=== PATIENT | female | born 1995 | race Caucasian/White ===

== ENCOUNTER 2018-09-11 07:22 | Emergency (ER) | payer OTHER, SELFPAY ==
[2018-09-11 07:28] VITALS: BP 130/91; PULSE 88; RESP 18; TEMP 37.2; O2SAT 97
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
[2018-09-11 08:17] LABS: Bilirubin Negative (Negative); Blood Negative (Negative); Clarity Clear; Glucose Negative (Negative); Ketones Negative (Negative); Leukocyte Esterase Negative (Negative); Nitrite Negative (Negative); Specific Gravity 1.015 (1.005-1.025); Urobilinogen 0.2 EU/dL (Up TO 0.2)
[2018-09-11] MEDS: LORazepam 1 MG TAB PO (08:22)
[2018-09-11 08:27] LABS: Abs Immature Grans 0.06 k/cumm (0.0-0.09); Absolute Basophil Count 0.03 k/cumm (0.0-0.2); Absolute Eosinophil Count 0.07 k/cumm (0.0-0.7); Absolute Lymphocyte Count 1.83 k/cumm (1.2-3.4); Absolute Monocyte Count 0.59 k/cumm (0.11-0.7); Absolute Neutrophil Count 5.47 k/cumm (1.2-6.7); Basophils % 0.4; Eosinophils % 0.9; HCT 40.6 % (36.0-46.0); HGB 14.1 g/dL (12.0-15.5); Immature Grans % 0.7; Lymphocytes % 22.7; Mean Corp. HGB Concentration 34.7 g/dL (32.0-36.0); Mean Corpuscular Hemoglobin 31.1 pg (27.0-33.0); Mean Corpuscular Volume 89.6 fL (80-95); Monocytes % 7.3; Platelet Count 291 x1000/uL (130-400); RBC 4.53 m/cumm (4.00-5.20); RBC Distribution Width 11.8 % (11.7-14.6); White Blood Cell Count 8.05 k/cumm (4.4-10.8)
[2018-09-11 08:38] LABS: *AMPHETAMINES SCREEN URINE Negative (Negative); *BARBITURATES SCREEN URINE Negative (Negative); *BENZODIAZEPINES SCREEN URINE Negative (Negative); Cannabinoids THC POSITIVE (Negative); Cocaine Screen,Urine Negative (Negative); METHADONE URINE SCREEN Negative (Negative); OPIATES URINE SCREEN Negative (Negative)
[2018-09-11 08:39] LABS: Tricyclic Antidepressants Negative (Negative)
[2018-09-11 08:48] LABS: ALT 26 U/L (12-78); AST 17 U/L (15-37); Albumin 3.9 g/dL (3.4-5.0); Alkaline Phosphatase 64 U/L (46-116); Anion Gap 9.3 mmol/L (3-11); BUN 7 mg/dL (7-18); Bilirubin, Total 0.2 mg/dL (0.2-1.0); CO2 27.7 mmol/L (21.0-32.0); CREATININE 0.67 mg/dL (0.55-1.02); Calcium 9.3 mg/dL (8.5-10.1); Chloride 104 mmol/L (98-107); Glucose 91 mg/dL (70-100); Potassium 4.5 mmol/L (3.5-5.1); Sodium 141 mmol/L (136-145); TSH (W/Ref FT4) 0.57 uIU/mL (0.358-3.74); Total Protein 7.7 g/dL (6.4-8.2)
[2018-09-11 08:50] LABS: Acetaminophen < 2 ug/mL (10-30)
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
--- NOTE | 2018-09-11 10:00 | NUR.NOTE ---
MD Campos is at the bedside.
[2018-09-11 10:06] VITALS: BP 111/75; PULSE 63; RESP 16; O2SAT 111
== END 2018-09-11 10:04 | disposition home or self-care (01) ==
PROVIDERS: Emergency Provider Student in an Organized Health Care Education/Training Program; PCP Pediatrics
DX: F41.8 Other specified anxiety disorders (principal); R45.851 Suicidal ideations; J02.9 Acute pharyngitis, unspecified; F31.9 Bipolar disorder, unspecified; Z63.79 Other stressful life events affecting family and household
CPT/HCPCS: 36415; 80053; 80307; 81025; 87880; 93005; 99283; 80329; 81003; 84443; 85025; 87081; 93010

== ENCOUNTER 2018-09-13 20:24 | Emergency (ER) | payer OTHER, SELFPAY ==
[2018-09-13 20:33] VITALS: BP 120/76; PULSE 77; RESP 16; TEMP 36.6; O2SAT 100
--- NOTE | 2018-09-13 21:05 | ED.GENADUL_ITS ---
Discharge Plan Disposition Patient Disposition: HOME Condition: Good Discharge Details Chief Complaint: Sorethroat Clinical Impression: Acute infective pharyngitis Primary Care Provider: Nina Phillips V ED Provider: Cullen Mcgowan Home Meds and New Rx's Prescriptions: New azithromycin 250 mg tablet 250 mg PO DAILY 4 Days Qty: 4 RF: 0 Discharge Instructions Instructions: Pharyngitis (ED) Additional Instructions: Please do salt water gargles and use Cepacol lozenges for throat pain. Alternate acetaminophen and ibuprofen for the neck pain. Drink plenty fluids to stay hydrated. Rest for the next few days. Follow-up with primary care next week if not better. Return to ED for difficulty breathing, inability to swallow, continued/persistent fevers, other concerns. Stand Alone Forms: Work Release Referrals: Primary Care Provider [Outside] Medical Decision Making Patient here with worsening throat pain as well as cervical adenopathy that is tender. She is not febrile here. She is not tachycardic. Saturations are good. Throat culture from previous visit is growing Streptococcus G. Typically would not treat but given her symptoms are worse, we will go ahead and start treatment. She has allergies to amoxicillin which cause hives. Will treat with azithromycin. Will give first dose here. We will also give shot of Toradol for pain. Recommend salt water gargles and Cepacol lozenges to help with pain. Tylenol and Motrin for the cervical node tenderness and pain. Follow-up with primary care next week if not better. Return to ED if continues to get worse. Medical Records Medical records reviewed: Yes I reviewed the patient's medical records. HPI General Mode of arrival: ambulatory . Date/Time Provider Initiated Documentation: 09/13/18 21:01 . Limitations to Documentation: no limitations . Information obtained by: patient, RN notes reviewed and old records reviewed . HPI Narrative: Patient presents to ED with increasing throat and neck pain. She reports having febrile type illness for the last week or so. Associated with tactile fever, earache, sore throat, congestion and cough. The congestion and cough is more or less resolved. However, her sore throat continues to get worse. She is taking ibuprofen, cough drops, throat lozenges today with increasing pain. She has no shortness of breath. She has pain when she swallows. She has no abdominal pain, nausea, vomiting. She has a slight headache. She was here in the ED earlier this week. At that time a throat culture was done. She was also seen for mental health which seems to be better at this point. Related Data Home Medications Medication Instructions Recorded Confirmed azithromycin 250 mg PO DAILY 4 Days #4 tab 09/13/18 Previous Rx's Medication Instructions Recorded azithromycin 250 mg PO DAILY 4 Days #4 tab 09/13/18 Allergies Allergy/AdvReac Type Severity Reaction Status Date / Time amoxicillin Allergy Mild hives Unverified 09/11/18 07:37 General Stated Complaint: Sorethroat RAHUL: 3 Review of Systems Constitutional Denies fatigue, Reports fever(s), Reports headache(s), Denies lethargy, Reports malaise and Denies weakness Eyes Denies eye discharge and Denies eye pain ENT Reports otalgia, Denies facial pain, Reports headache(s), Denies nasal congestion, Reports neck pain, Reports odynophagia, Denies sinus pain, Denies sinus pressure and Reports sore throat Cardiovascular Denies chest pain, Denies syncope, Denies rapid heart rate, Denies palpitations and Denies dyspnea Respiratory Denies cough and Denies dyspnea Gastrointestinal Denies abdominal pain, Denies diarrhea, Denies nausea, Reports odynophagia and Denies vomiting Musculoskeletal Denies back pain, Denies myalgias, Denies arthralgias, Reports neck pain, Denies numbness and Denies tingling Integumentary/Breasts Denies rash Neurologic Denies abnormal speech, Denies confusion, Denies syncope, Reports headache(s), Denies focal weakness, Denies numbness, Denies tingling and Denies weakness Psychiatric Denies confusion Endocrine Denies fatigue and Denies palpitations PFSH Anxiety Attention deficit hyperactivity disorder, combined type Dyspareunia in female Family History Father Anxiety Narcissism Mother Anxiety Dilation and curettage Family History Father Anxiety Narcissism Mother Anxiety Medical History Anxiety Attention deficit hyperactivity disorder, combined type Dyspareunia in female Social History Smoking/Tobacco Use Status: Current every day alcohol intake: current alcohol intake frequency: 3 or more drinks per day substance use type: marijuana Surgical History Dilation and curettage Social History Smoking/Tobacco Use Status: Current every day alcohol intake: current alcohol intake frequency: 3 or more drinks per day substance use type: marijuana Exam Const General: cooperative, uncomfortable and no acute distress Orientation: alert and oriented x3 HENMT Head: normocephalic and atraumatic Ears: external ears normal and TM's normal bilaterally General nose exam: external nose normal Face and sinus: normal facial exam and sinuses nontender Mouth: moist mucous membranes, no muffled voice and oral mucosa abnormal ulceration of the hard palate (not true ulceration but erythematous lesion left side) Throat: tonsils normal, uvula midline, no peritonsillar masses, posterior oropharynx abnormal cobblestoning and erythema; no exudates and no uvular edema Eyes Conjunctivae: conjunctivae normal Neck Neck: normal visual inspection, no meningeal signs, trachea midline, supple and lymphadenopathy (tender anterior cervical nodes) Resp Effort & Inspection: normal respiratory effort Auscultation: clear to auscultation bilaterally Cardio Rate: regular rate Rhythm: regular rhythm Heart Sounds: S1 normal and S2 normal Skin General skin exam: no rashes or lesions noted Neuro General: alert, oriented x3, moves all extremities and normal light touch, pain and propioception Course Vital Signs Temperature 97.9 F 09/13/18 20:33 Pulse 77 09/13/18 20:33 Respiratory Rate 16 09/13/18 20:33 Blood Pressure 120/76 09/13/18 20:33 Pulse Oximetry 100 09/13/18 20:33 Temperature 97.9 F 09/13/18 20:33 Temperature Source Skin 09/13/18 20:33 Pulse 77 09/13/18 20:33 Respiratory Rate 16 09/13/18 20:33 Blood Pressure 120/76 09/13/18 20:33 Blood Pressure Position Sitting 09/13/18 20:33 Pulse Oximetry 100 09/13/18 20:33 Oxygen Delivery Method Room Air 09/13/18 20:33 Oxygen Flow Rate 0 09/13/18 20:33 Pain Level 10 09/13/18 20:33
[2018-09-13] MEDS: Azithromycin 250 MG TAB 500 MG PO (22:07)
[2018-09-13] MEDS: Ketorolac 30 MG/ML VIAL IM (22:07)
== END 2018-09-13 22:31 | disposition home or self-care (01) ==
PROVIDERS: Emergency Provider Emergency Medicine; PCP Pediatrics
DX: J02.0 Streptococcal pharyngitis (principal); F17.210 Nicotine dependence, cigarettes, uncomplicated
CPT/HCPCS: 96372; 99284; J1885

== ENCOUNTER 2018-12-01 14:48 | Emergency (ER) | payer OTHER, SELFPAY ==
--- NOTE | 2018-12-01 14:54 | NUR.NOTE ---
laceration left hand first digit
[2018-12-01 14:56] VITALS: PULSE 77; RESP 17; TEMP 36.4; O2SAT 98
--- NOTE | 2018-12-01 14:57 | ED.GENADUL_ITS ---
Discharge Plan Disposition Patient Disposition: HOME Condition: Stable Discharge Details Chief Complaint: Laceration Clinical Impression: Laceration of left thumb Primary Care Provider: Nina Phillips V ED Provider: Ronny Espinoza Discharge Instructions Instructions: Skin Adhesive Care (ED) Medical Decision Making 23 yo female comes in with left thumb laceration/abrasion. She was at work using aknife and cut the distal left thumb. Has very superfical lac of distal left thumb that goes through the nail bed, intact sensation and full rom so doubt tendon injury. I applied skin adhesive to the wound, not deep enough for sutu res, will d/c home Differential Diagnosis abrasion, laceration HPI General Mode of arrival: ambulatory . Date/Time Provider Initiated Documentation: 12/01/18 14:49 . Limitations to Documentation: no limitations . Information obtained by: patient . History of Present Illness 23 year old F presents to the emergency department with the chief complaint of left thumb laceration, described as moderate, with intensity rated at 5. Quality is described as aching, and is localized to the left and upper extremity. Patient reports no radiation. Patient started experiencing this hour(s) (1) and it has been constant. No relieving factors improve symptom(s), No exacerbating factors reported . Patient notes no other symptoms.. Patient did receive the following treatments prior to arrival, none Related Data Allergies Allergy/AdvReac Type Severity Reaction Status Date / Time amoxicillin Allergy Mild hives Unverified 09/13/18 22:33 General RAHUL: 3 Review of Systems Review of Systems All systems reviewed & are unremarkable except as noted in HPI and below Constitutional Denies chills, Denies fever(s) and Denies weakness Cardiovascular Denies chest pain and Denies dyspnea Respiratory Denies cough and Denies dyspnea Gastrointestinal Denies abdominal pain, Denies nausea and Denies vomiting Musculoskeletal Denies joint swelling Integumentary/Breasts Denies rash Neurologic Denies weakness Endocrine Denies cold intolerance and Denies heat intolerance [facility] Medical History Anxiety Attention deficit hyperactivity disorder, combined type Dyspareunia in female Surgical History Dilation and curettage Family History Father Anxiety Narcissism Mother Anxiety Social History Smoking and Tabacco status: Current every day alcohol intake: current alcohol intake frequency: 3 or more drinks per day substance use type: marijuana Exam Const General: no acute distress Orientation: alert HENMT Head: normal to inspection Ears: external ears normal General nose exam: external nose normal Mouth: moist mucous membranes Eyes General: appearance normal, both eyes and all related structures Neck Neck: normal visual inspection Resp Effort & Inspection: normal respiratory effort and able to speak in complete sentences Cardio Rate: regular rate Skin General skin exam: no rashes or lesions noted Neuro General: alert and oriented x3 Extrem General: full ROM and normal capillary refill Psych Mental Status: mental status grossly normal Procedures Laceration Laceration 1: Site: hand Side (If applicable): left Size (cm): 1 Description: linear Depth: simple, single layer Skin layer closed with: other (skin adhesive)
[2018-12-01 15:18] VITALS: PULSE 77; RESP 17; TEMP 36.4; O2SAT 98
== END 2018-12-01 15:16 | disposition home or self-care (01) ==
LOC: ER 15:20
PROVIDERS: Emergency Provider Emergency Medicine; PCP Pediatrics
DX: S61.122A Laceration with foreign body of left thumb with damage to nail, initial encounter (principal); W26.0XXA Contact with knife, initial encounter
CPT/HCPCS: 12001; 90471

== ENCOUNTER 2020-05-09 10:50 | Emergency (ER) | payer OTHER, SELFPAY ==
[2020-05-09 10:52] VITALS: BP 134/89; PULSE 84; RESP 14; TEMP 36.9; O2SAT 100
--- NOTE | 2020-05-09 11:04 | W.ED.GENAD ---
Discharge Plan Disposition Patient Disposition: HOME Condition: Stable Discharge Details Chief Complaint: GenMedical Clinical Impression: Acute streptococcal pharyngitis Primary Care Provider: None,None ED Provider: Lashae Alonso Home Meds and New Rx's Prescriptions: New azithromycin [Zithromax] 500 mg tablet 500 mg PO DAILY 5 Days Qty: 5 RF: 0 Discharge Instructions Instructions: Pharyngitis (ED) Additional Instructions: Drink plenty of fluids and get plenty of rest. Alternate tylenol and motrin as needed and directed for pain. Take the antibiotics until finished. Follow-up with your primary care doctor in 1 week. Return to the emergency department with any worsening or new concerning symptoms. Discharge Data Discharge Physician: Lashae Alonso Medical Decision Making 25-year-old female presents with sore throat, swollen glands, dysphagia and white spots on her tonsils for the past few days. Patient has mild to moderate tonsillar edema, moderate erythema, and significant white exudates bilaterally. Uvula midline. Bilateral tender cervical lymphadenopathy. No peritonsillar abscess. No drooling, trismus, submandibular swelling. No hepatosplenomegaly. Rapid strep done and positive. Galax screen negative. Patient has an allergy to amoxicillin. She was given a prescription for Zithromax. Advised to follow up with the primary care doctor for re-evaluation. Usual and customary return precautions given prior to discharge. Medical Records Medical records reviewed: Yes I reviewed the patient's medical records. HPI General Mode of arrival: ambulatory. Date/Time Provider Initiated Documentation: 05/09/20 10:50. Limitations to Documentation: no limitations. Information obtained by: patient. HPI Narrative: Patient is a 25-year-old female who presents with pain with swallowing, swollen glands in her throat, and white spots noted on her tonsils for the past 2 days. She denies any significant sore throat but states she has been developing more pain with swallowing. She has been able to eat and drink. She denies any fever, abdominal pain or vomiting. Related Data Home Medications Medication Instructions Recorded Confirmed azithromycin [Zithromax] 500 mg PO DAILY 5 Days #5 tab 05/09/20 Previous Rx's Medication Instructions Recorded azithromycin [Zithromax] 500 mg PO DAILY 5 Days #5 tab 05/09/20 Allergies Allergy/AdvReac Type Severity Reaction Status Date / Time amoxicillin Allergy Mild hives Unverified 05/09/20 10:59 General Stated Complaint: GenMedical RAHUL: 4 Review of Systems All systems reviewed & are unremarkable except as noted in HPI and below Constitutional Constitutional: Reports as per HPI, Denies chills and Denies fever(s) Eyes Eyes: Denies blurry vision ENT Ears, Nose, Mouth, and Throat: Denies dizziness, Reports odynophagia, Reports sore throat and Denies throat swelling Cardiovascular Cardiovascular: Denies chest pain and Denies dyspnea Respiratory Respiratory: Denies cough and Denies dyspnea Gastrointestinal Gastrointestinal: Denies abdominal pain, Denies diarrhea, Reports odynophagia and Denies vomiting Genitourinary Genitourinary: Denies hematuria and Denies dysuria Musculoskeletal Musculoskeletal: Denies back pain and Denies numbness Integumentary/Breasts Skin/Breast: Denies lesions and Denies rash Neurologic Neurologic: Denies dizziness, Denies localized weakness and Denies numbness Allergic/Immunologic Allergic/Immunologic: Denies throat swelling [facility] Medical History (Updated 05/09/20 @ 11:55 by Lashae Alonso DO) Anxiety Attention deficit hyperactivity disorder, combined type Dyspareunia in female R > L sided pelvic pain. Surgical History Dilation and curettage With early AB Family History Father Anxiety untreated Narcissism per pt/mom's description Mother Anxiety Social History Smoking/Tobacco Use Status: Current every day Tobacco Type: cigarettes Alcohol Intake: current Alcohol Intake frequency: a few times a month Drug use: Occasionally Substance use type: marijuana Do you feel safe at home: Yes Do you feel safe in your relationship?: Yes Additional Social history: lives with grandparents Exam Const General: cooperative and healthy appearing Orientation: alert and awake HENMT Head: normal to inspection Ears: hearing grossly normal bilaterally, external ears normal and TM's normal bilaterally General nose exam: external nose normal Face and sinus: normal facial exam Mouth: oral mucosae normal Teeth and gingiva: dentition normal Throat: uvula midline, no peritonsillar masses and posterior oropharynx abnormal edema (Mild to moderate, tonsils not kissing), erythema and exudates Eyes General: appearance normal, both eyes and all related structures Eyelids: eyelids normal Pupils: PERRL EOM: EOM intact bilaterally Neck Neck: normal visual inspection Lymphatic: no lymphadenopathy noted Chest Chest: normal inspection of the chest Resp Effort & Inspection: normal respiratory effort and able to speak in complete sentences Auscultation: clear to auscultation bilaterally Cardio Rate: regular rate Rhythm: regular rhythm GI Inspection: normal to inspection Palpation: soft, not firm, no guarding, no hepatosplenomegaly, no masses and nontender Auscultation: normal bowel sounds Skin General skin exam: no rashes or lesions noted Neuro General: patient alert and patient awake Cognition: normal cognition Speech: speech normal Gait: normal gait Motor: muscle tone normal throughout Sensory Exam: no sensory deficits noted Extrem General: normal to inspection, full ROM and capillary refill normal Psych Appearance: grossly normal Mental Status: mental status grossly normal Speech and Movement: speech and movement normal Affect: normal affect Thought Process: normal Course Vital Signs Vital signs: Vital Signs Temperature 98.4 F 05/09/20 10:52 Pulse 84 05/09/20 10:52 Respiratory Rate 14 05/09/20 10:52 Blood Pressure 134/89 05/09/20 10:52 Pulse Oximetry 100 05/09/20 10:52 Temperature 98.4 F 05/09/20 10:52 Temperature Source Skin 05/09/20 10:52 Pulse 84 05/09/20 10:52 Respiratory Rate 14 05/09/20 10:52 Respiratory Effort 05/09/20 11:02 Blood Pressure 134/89 05/09/20 10:52 Blood Pressure Position Sitting 05/09/20 10:52 Pulse Oximetry 100 05/09/20 10:52 Oxygen Delivery Method Room Air 05/09/20 10:52 Oxygen Flow Rate 0 05/09/20 10:52 Pain Level 5 05/09/20 10:52 Comment 05/09/20 10:52
[2020-05-09 11:51] LABS: Mono Screening Negative (Negative)
== END 2020-05-09 12:03 | disposition home or self-care (01) ==
PROVIDERS: Emergency Provider Physician Assistant
DX: J02.0 Streptococcal pharyngitis (principal); F17.210 Nicotine dependence, cigarettes, uncomplicated
CPT/HCPCS: 36415; 87880; 99283; 86308

== ENCOUNTER 2020-06-26 07:43 | Emergency (ER) | payer OTHER, SELFPAY ==
[2020-06-26 07:50] VITALS: BP 114/81; PULSE 97; RESP 18; TEMP 36.7; O2SAT 99
--- NOTE | 2020-06-26 08:10 | W.ED.GENAD ---
Discharge Plan Disposition Patient Disposition: HOME Condition: Stable Discharge Details Clinical Impression: Pharyngitis Primary Care Provider: None,None ED Provider: Refugio Lopez Home Meds and New Rx's Prescriptions: New azithromycin 250 mg tablet See Rx Instructions .ROUTE .COMPLEX Qty: 6 RF: 0 Discharge Instructions Instructions: Pharyngitis (ED) Additional Instructions: Small, frequent sips of fluids and/or popsicles to maintain hydration. Tylenol and ibuprofen as needed for pain. Take azithromycin as prescribed 2 tablets today, then 1 tablet daily until finished. Return to the ER for any acute concerns. Medical Decision Making 25-year-old female with sore throat for 2 days. She is well-appearing, pleasant, no other significant symptoms. Her exam reveals erythematous tonsillar pillars with overlying white exudate, her rapid strep test is positive. She is allergic to penicillins. I will place her on a course of azithromycin. She has otherwise been well and is appropriate for outpatient management. She declined a coronavirus test, which was offered, but I do not feel that it is likely she is positive. HPI General Mode of arrival: ambulatory. Date/Time Provider Initiated Documentation: 06/26/20 07:44. Limitations to Documentation: no limitations. Information obtained by: patient. History of Present Illness 25 year old F presents to the emergency department with the chief complaint of 2 days sore throat, described as moderate and similar to prior episodes, Quality is described as dull and constant, and is localized to the mouth. Patient reports no radiation. Patient started experiencing this day(s) and it has been constant. No relieving factors improve symptom(s), No exacerbating factors reported . Patient notes malaise; denies cough, fever/chills, nausea/vomiting and shortness of breath. Patient did receive the following treatments prior to arrival, none Related Data Home Medications Medication Instructions Recorded Confirmed azithromycin See Rx Instructions .ROUTE 06/26/20 .COMPLEX #6 tab Previous Rx's Medication Instructions Recorded azithromycin See Rx Instructions .ROUTE 06/26/20 .COMPLEX #6 tab Allergies Allergy/AdvReac Type Severity Reaction Status Date / Time amoxicillin Allergy Mild hives Unverified 06/26/20 07:53 General Stated Complaint: Sorethroat RAHUL: 4 Review of Systems Narrative: 4 systems reviewed and otherwise negative [facility] Medical History Anxiety Attention deficit hyperactivity disorder, combined type Dyspareunia in female R > L sided pelvic pain. Surgical History Dilation and curettage With early AB Family History Father Anxiety untreated Narcissism per pt/mom's description Mother Anxiety Social History Smoking/Tobacco Use Status: Current every day Tobacco Type: cigarettes Alcohol Intake: current Alcohol Intake frequency: a few times a month Drug use: Occasionally Substance use type: marijuana Do you feel safe at home: Yes Do you feel safe in your relationship?: Yes Additional Social history: lives with grandparents Exam Narrative Exam Narrative: GEN: awake, alert, oriented 3. Pleasant, well groomed, interactive. HEAD: Normocephalic, atraumatic ENT: Mucous membranes moist, oropharynx with erythematous tonsillar pillars with overlying white exudate, uvula midline, tympanic membranes unremarkable, External ear exam unremarkable EYES: PERRL, EOMI NECK: Full ROM, no MARQUEZ, no menigismus CHEST/RESP: Nontender, clear to auscultation bilateral, no wheeze/rhonchi/rales CARDIOVASCULAR: RRR, no murmur, rub portillo. 2+ Rad pulse bilateral Neuro: Grossly normal neurologic exam, conversant, interactive. Psych: Speech fluent, thoughts congruent, affect normal Course Vital Signs Vital signs: Vital Signs Temperature 36.7 C 06/26/20 07:50 Pulse 97 H 06/26/20 07:50 Respiratory Rate 18 06/26/20 07:50 Blood Pressure 114/81 06/26/20 07:50 Pulse Oximetry 99 06/26/20 07:50 Temperature 36.7 C 06/26/20 07:50 Pulse 97 H 06/26/20 07:50 Respiratory Rate 18 06/26/20 07:50 Respiratory Effort Non-Labored 06/26/20 07:53 Blood Pressure 114/81 06/26/20 07:50 Blood Pressure Position Sitting 06/26/20 07:50 Pulse Oximetry 99 06/26/20 07:50 Oxygen Delivery Method Room Air 06/26/20 07:50 Oxygen Flow Rate 0 06/26/20 07:50 Lab/Test Results Lab/Test Results: POC Strep Test-MARLENY(Rapid) Start: 06/26/20 08:06 Freq: Status: Active Protocol: Document 06/26/20 08:07 [employer] (Rec: 06/26/20 08:07 [employer] [id number]) Strep test-MARLENY(Rapid)-POC POC-Strep test-MARLENY (Rapid) Positive POC-Strep test-MARLENY (Rapid) Positive
== END 2020-06-26 08:20 | disposition home or self-care (01) ==
PROVIDERS: Emergency Provider Emergency Medicine
DX: J02.0 Streptococcal pharyngitis (principal); F17.210 Nicotine dependence, cigarettes, uncomplicated
CPT/HCPCS: 87880; 99283

== ENCOUNTER 2020-06-28 07:38 | Emergency (ER) | payer OTHER, SELFPAY ==
[2020-06-28 07:43] VITALS: BP 153/76; PULSE 120; RESP 16; TEMP 36.8; O2SAT 99
--- NOTE | 2020-06-28 07:58 | W.ED.GENAD ---
Discharge Plan Disposition Patient Disposition: HOME Condition: Good Discharge Details Clinical Impression: Pharyngitis, Lymphadenopathy Primary Care Provider: None,None ED Provider: Charline Sanchez Home Meds and New Rx's Prescriptions: Continued azithromycin 250 mg tablet See Rx Instructions .ROUTE .COMPLEX Qty: 6 RF: 0 Discharge Instructions Instructions: Pharyngitis (ED) Additional Instructions: Please continue with your azithromycin. Please encourage water intake. Please change your toothbrush today. It does appear that your throat is improving. You may use Tylenol and ibuprofen for your enlarged lymph nodes to help with discomfort. With your developing symptoms, we have tested you for COVID-19. Please quarantine until these results are back. We will call you with results. If you are unable to stay hydrated, develop fever, difficulty opening your mouth or other new/worsening symptoms please seek care urgently once again. Stand Alone Forms: PENDING COVID-19 TESTING, Work Release Medical Decision Making Patient is a pleasant 25-year-old female presenting today with concern for lymphadenopathy. Patient was seen here 2 days ago at which time she was started on azithromycin for streptococcal pharyngitis. She states that she has been taking the medications as prescribed but does note improvement in her sore throat as well as the white patches that had initially been noted on her tonsils. She is concerned today that she has lymphadenopathy is quite painful, particularly to palpation. She reports that she has not had any fevers or chills. No shortness of breath or cough. Is also began developing runny nose and some sinus discomfort. On exam, patient appears nontoxic. She was initially documented to have a heart rate of 121 but this was when patient appeared very anxious per nursing report. I rechecked denies in the room and patient's heart rate was at 90. She is no sinus pain with percussion. She has palpable anterior cervical lymphadenopathy that is equal bilaterally. No masses are noted. She is good range of motion of her neck, no nuchal rigidity. She is denying any headache. No evidence of physical exam to suggest peritonsillar abscess or abscess elsewhere in her neck. She has no posterior adenopathy, does not have symptoms otherwise this suggest mononucleosis. She does appear well-hydrated. We will add Tylenol to the anti-inflammatory she is Orion taking this morning. Work note will be given. As her symptoms have progressed, I did recommend COVID-19 testing. She had initially declined this when she was seen 2 days ago. I does note that by Dr. Lopez, I would find her low risk but with the progression of symptoms I do feel the testing is appropriate at this time. Work note was given that did outline that she will be quarantining per patient's request. She was given return precautions. Will also help with new primary care. Patient will change her toothbrush today. All of her questions or concerns were addressed and she is in agreement this plan. HPI General Mode of arrival: ambulatory. Date/Time Provider Initiated Documentation: 06/28/20 07:58. Limitations to Documentation: no limitations. Information obtained by: patient and family (mother). History of Present Illness 25 year old F presents to the emergency department with the chief complaint of sore throat, enlarged lymphnodes, described as severe, with intensity rated at 8. Quality is described as burning, and is localized to the mouth and neck. Patient reports no radiation. and it has been constant. Medication improves symptom(s), (took NSAID prior to arrival, starting to improve) No exacerbating factors reported . Patient notes denies chest pain, cough, fever/chills, loss of appetite, nausea/vomiting, rash and shortness of breath. Patient did receive the following treatments prior to arrival, NSAID and other (currently on azithromycin) Related Data Home Medications Medication Instructions Recorded Confirmed azithromycin See Rx Instructions .ROUTE 06/26/20 06/28/20 .COMPLEX #6 tab Previous Rx's Medication Instructions Recorded azithromycin See Rx Instructions .ROUTE 06/26/20 .COMPLEX #6 tab Allergies Allergy/AdvReac Type Severity Reaction Status Date / Time amoxicillin Allergy Mild hives Unverified 06/28/20 07:47 General Stated Complaint: Sorethroat RAHUL: 3 Review of Systems Constitutional Constitutional: Reports as per HPI and Denies headache(s) Eyes Eyes: Reports as per HPI, Denies eye discharge and Denies irritation ENT Ears, Nose, Mouth, and Throat: Reports as per HPI and Denies headache(s) Cardiovascular Cardiovascular: Reports as per HPI, Denies chest pain and Denies dyspnea Respiratory Respiratory: Reports as per HPI and Denies dyspnea Gastrointestinal Gastrointestinal: Reports as per HPI, Denies abdominal pain, Denies change in bowel habits, Denies nausea and Denies vomiting Integumentary/Breasts Skin/Breast: Reports as per HPI and Denies rash Neurologic Neurologic: Reports as per HPI and Denies headache(s) [facility] Medical History Anxiety Attention deficit hyperactivity disorder, combined type Dyspareunia in female R > L sided pelvic pain. Surgical History Dilation and curettage With early AB Family History Father Anxiety untreated Narcissism per pt/mom's description Mother Anxiety Social History Smoking/Tobacco Use Status: Current every day Tobacco Type: cigarettes Alcohol Intake: current Alcohol Intake frequency: a few times a month Drug use: Occasionally Substance use type: marijuana Do you feel safe at home: Yes Do you feel safe in your relationship?: Yes Additional Social history: lives with grandparents Exam Const General: cooperative, healthy appearing, comfortable, no acute distress, well developed and well groomed Nutritional Appearance: average body habitus and well nourished Orientation: alert and awake [facility] Head: normal to inspection, normocephalic and atraumatic Ears: hearing grossly normal bilaterally, external ears normal and TM's normal bilaterally General nose exam: external nose normal and nares normal Face and sinus: normal facial exam, sinuses nontender and face symmetric Mouth: oral mucosae normal, lip normal, tongue normal, oropharynx normal, moist mucous membranes, no muffled voice and no trismus Teeth and gingiva: dentition normal Throat: uvula midline, abnormal tonsil bilaterally erythema; no exudates and no hypertrophy, no peritonsillar masses and uvula not displaced Eyes General: appearance normal, both eyes and all related structures Neck Neck: normal visual inspection, full ROM, no meningeal signs and lymphadenopathy (anterior cervical) Resp Effort & Inspection: normal respiratory effort, able to speak in complete sentences and no respiratory distress Auscultation: clear to auscultation bilaterally, no rales, no rhonchi and no wheezes Cardio Rate: regular rate Rhythm: regular rhythm Heart Sounds: S1 normal and S2 normal Skin General skin exam: no rashes or lesions noted Neuro General: patient alert and patient awake Cognition: normal cognition Speech: speech normal Gait: normal gait Psych Appearance: grossly normal and well kempt Mental Status: mental status grossly normal Speech and Movement: speech and movement normal Course Vital Signs Vital signs: Vital Signs Temperature 36.8 C 06/28/20 07:43 Pulse 120 H 06/28/20 07:43 Respiratory Rate 16 06/28/20 07:43 Blood Pressure 153/76 H 06/28/20 07:43 Pulse Oximetry 99 06/28/20 07:43 Temperature 36.8 C 06/28/20 07:43 Temperature Source Skin 06/28/20 07:43 Pulse 120 H 06/28/20 07:43 Respiratory Rate 16 06/28/20 07:43 Respiratory Effort Non-Labored 06/28/20 07:43 Blood Pressure 153/76 H 06/28/20 07:43 Blood Pressure Position Standing 06/28/20 07:43 Pulse Oximetry 99 06/28/20 07:43 Oxygen Delivery Method Room Air 06/28/20 07:43 Oxygen Flow Rate 0 06/28/20 07:43 Pain Level 8 06/28/20 07:43
--- NOTE | 2020-06-28 08:21 | NUR.NOTE ---
Nursing Note: Referral for needing PCP and follow up given to Care Management. Bianka Martinez
[2020-06-28 08:36] VITALS: BP 114/74; PULSE 84; RESP 16; TEMP 36.8; O2SAT 99
[2020-06-28] MEDS: Acetaminophen 500 MG TAB 1000 MG PO (08:36)
--- NOTE | 2020-07-01 09:30 | CMPROGNOTE_ITS ---
- If Service Date Differs Date of service: 07/01/20 Time of Service: 09:30 Care Management Progress Note At ED provider's request, CM coordinates a referral to Asha Hathaway MD, on-call provider, of [facility] to assist Renetta in obtaining a follow-up appointment and in establishing care with a PCP. Renetta is seen in the ED for pharyngitis. She has [employer] for health insurance.
[2020-07-01 12:58] LABS: Patient Race White; SARS-CoV-2 RNA Undetected (Undetected); SARS-CoV-2 Specimen Source Nasopharynx
== END 2020-06-28 08:34 | disposition home or self-care (01) ==
PROVIDERS: Emergency Provider Physician Assistant
DX: R59.0 Localized enlarged lymph nodes (principal); J02.9 Acute pharyngitis, unspecified; Z11.59 Encounter for screening for other viral diseases
CPT/HCPCS: 99282; U0003; 99283

== ENCOUNTER 2020-12-17 15:17 | Outpatient (REF) | payer SELFPAY ==
--- NOTE | 2020-12-17 14:35 | PAPFT_PTH ---
PATIENT: Renetta Aviles V LOC: [facility] U#:[id number] AGE/SX: 25/F ROOM: RE12/17/[address]: Mayra Worrell APRN : 1995 BED: DIS: 12/17/2020 SPEC #: [id number] RECD: 12/18/20 13:01 STATUS: MARKO REBryan #: [id number] SABRA: 12/17/20 14:[address]: Mayra Worrell DEPT: [facility] Cytology RECD BY: Dorothy Crandall Tissues: 1 - CX/ENDOCX FOR PAP SMEARS Procedures: PAP THIN PREP/UVM Screening Comments: [id number]
[2020-12-19 15:16] LABS: Chlamydia Result Negative (Negative); GC Result Negative (Negative)
== END 2020-12-17 15:18 | disposition home or self-care (01) ==
LOC: LBN 15:17
PROVIDERS: PCP Nurse Practitioner Adult Health; Visit Provider Nurse Practitioner Adult Health
DX: Z11.3 Encounter for screening for infections with a predominantly sexual mode of transmission (principal); Z12.4 Encounter for screening for malignant neoplasm of cervix
CPT/HCPCS: 87491; 87591; 88142; 87480; 87510; 87660

== ENCOUNTER 2022-08-02 14:09 | Outpatient (REF) | payer SELFPAY | END 2022-08-02 14:10 | disposition home or self-care (01) | LOC: LBN 14:09 | PROVIDERS: PCP Nurse Practitioner Adult Health; Visit Provider Nurse Practitioner Family | DX: J02.9 Acute pharyngitis, unspecified (principal) | CPT/HCPCS: 87077; 87070 ==

== ENCOUNTER 2022-11-04 07:15 | Outpatient (REF) | payer SELFPAY ==
[2022-11-05 11:29] LABS: COVID-19 RT-PCR UVMMC Result Negative (Negative)
== END 2022-11-04 07:16 | disposition home or self-care (01) ==
LOC: LBN 07:15
PROVIDERS: PCP Nurse Practitioner Adult Health; Visit Provider Physician Assistant Medical
DX: Z20.822 Contact with and (suspected) exposure to COVID-19 (principal); J02.9 Acute pharyngitis, unspecified
CPT/HCPCS: U0003; 87070

== ENCOUNTER 2023-02-10 14:37 | Outpatient (CLI) | payer SELFPAY ==
[2023-02-10 10:32] LABS: Abs Immature Grans 0.04 10^3/uL (0.0-0.06); Absolute Basophil Count 0.06 10^3/uL (0.0-0.2); Absolute Eosinophil Count 0.06 10^3/uL (0.0-0.7); Absolute Lymphocyte Count 1.79 10^3/uL (1.2-3.4); Basophils % 1.1; Eosinophils % 1.1; HCT 42.8 % (36.0-46.0); HGB 14.6 g/dL (11.2-15.7); Immature Grans % 0.7; Lymphocytes % 33.5; MCH 30.4 pg (27.0-33.0); MCHC 34.1 % (32.0-36.0); MCV 89 fL (80-95); MPV 11.6 fL (8.0-11.0); Monocytes % 9.3; Neutrophils % 54.3; Platelet Count 148 10^3/uL (130-400); RDW 12.1 % (11.7-14.6); RDW-SD 39.6 fL; WBC 5.35 10^3/uL (4.4-10.8)
[2023-02-10 10:44] LABS: VALPROIC ACID 71.2 ug/mL
[2023-02-10 11:26] LABS: Vitamin D 25 Total 39.3 ng/mL (30-100)
[2023-02-10 11:28] LABS: ALT 20 U/L (14-59); AST 10 U/L (15-37); Albumin 4.1 g/dL (3.4-5.0); Alkaline Phosphatase 35 U/L (46-116); BUN 12 mg/dL (7-18); Bilirubin, Total 0.3 mg/dL (0.2-1.0); CREATININE 0.7 mg/dL (0.55-1.02); Calcium 8.9 mg/dL (8.5-10.1); Chloride 106 mmol/L (98-107); Estimated GFR 122.25 (mL/min/1.73m2); Glucose 92 mg/dL (74-106); Potassium 4.2 mmol/L (3.5-5.1); Sodium 142 mmol/L (136-145); TSH 0.35 uIU/mL (0.36-3.74); Total Protein 7.3 g/dL (6.4-8.2); Vitamin B12 658 pg/mL (193-986)
== END 2023-02-10 14:38 | disposition home or self-care (01) ==
LOC: LBO 14:41
PROVIDERS: PCP Nurse Practitioner Adult Health; Visit Provider Nurse Practitioner Psychiatric/Mental Health
DX: F31.81 Bipolar II disorder (principal); R63.0 Anorexia; Z51.81 Encounter for therapeutic drug level monitoring; Z79.899 Other long term (current) drug therapy
CPT/HCPCS: 36415; 80053; 82306; 80164; 82607; 84443; 85025

== ENCOUNTER 2023-03-05 10:25 | Emergency (ER) | payer SELFPAY ==
[2023-03-05 10:29] VITALS: BP 124/73; PULSE 86; RESP 18; TEMP 37.5; O2SAT 99
--- NOTE | 2023-03-05 13:40 | ED.GENADUL_ITS ---
Discharge Plan Disposition Patient Disposition: Home Discharge Details Clinical Impression: Encounter for medication refill Primary Care Provider: Mayra Worrell ED Provider: Dorothy Estevez Home Meds and New Rx's Prescriptions: New divalproex [Depakote] 500 mg tablet,delayed release (DR/EC) 500 mg PO BID Qty: 10 0RF Continued cbd PO DAILY PRN omeprazole 20 mg capsule,delayed release(DR/EC) 20 mg PO DAILY Qty: 30 2RF Rx Instructions: Take on empty stomach in morning for heartburn. fluoxetine [Prozac] 20 mg capsule 20 mg PO DAILY Rx Instructions: per note dated 06/10/21 [facility] aripiprazole [Abilify] 2 mg tablet 2 mg PO DAILY Rx Instructions: per note dated 06/10/21 [facility] clonazepam 0.5 mg tablet 0.5 mg PO PRN PRN Patient Comments: Take 1 tablet by mouth three times a day as needed for anxiety divalproex [Depakote] 500 mg tablet,delayed release (DR/EC) 500 mg PO BID Patient Comments: Take 1 tablet by mouth once a day for three days then take twice daily until seen or called for increase Discharge Instructions Additional Instructions: Please follow-up with your counselor I have given you a 5-day supply of your Depakote Please return earlier should you have new or worsening complaints Referrals: Mayra Worrell, JACKSCREW WORKER [Primary Care Provider] - Discharge Data Discharge Date/Time-TO BE ENTERED AT DEPARTURE: 03/05/23 10:59 Medical Decision Making Patient calm and cooperative, alert and oriented concern for need for medication refill Will prescribe Depakote, 500 mg twice daily and supply 10 tabs Return precautions reviewed and patient expressed understanding HPI General Date/Time Provider Initiated Documentation: 03/05/23 10:53 . HPI Narrative: This 27-year-old female presents with report of concern for need for medication refill. States she only has 1 Depakote left and is unable to fill [facility] until [facility]. Asking for several day supply. Denies any suicidal ideation or acute complaints. Related Data Home Medications Medication Instructions Recorded Confirmed cbd PO DAILY PRN 11/17/20 03/30/21 omeprazole 20 mg capsule,delayed 20 mg PO DAILY #30 caps 12/17/20 03/05/23 release aripiprazole 2 mg tablet (Abilify) 2 mg PO DAILY 07/24/21 fluoxetine 20 mg capsule (Prozac) 20 mg PO DAILY 07/24/21 clonazepam 0.5 mg tablet 0.5 mg PO PRN PRN 03/05/23 03/05/23 divalproex 500 mg tablet,delayed 500 mg PO BID 03/05/23 03/05/23 release (Depakote) divalproex 500 mg tablet,delayed 500 mg PO BID #10 tabs 03/05/23 release (Depakote) Previous Rx's Medication Instructions Recorded omeprazole 20 mg capsule,delayed 20 mg PO DAILY #30 caps 12/17/20 release divalproex 500 mg tablet,delayed 500 mg PO BID #10 tabs 03/05/23 release (Depakote) Allergies Allergy/AdvReac Type Severity Reaction Status Date / Time amoxicillin Allergy Mild hives Unverified 03/05/23 10:33 General Stated Complaint: RX Refill RAHUL: 4 PFSH All Active Problems (Updated 03/05/23 @ 10:56 by LEONID Green) Encounter for medication refill (Acute) ADHD (attention deficit hyperactivity disorder), predominantly hyperactive impulsive type (Acute) Post-traumatic stress disorder, unspecified (Acute) Anxiety and depression (Chronic) At risk for domestic abuse (Acute) Underweight (Acute) Heartburn (Acute) Marijuana use (Chronic) Daily Nicotine use disorder (Chronic) Binge-purge behavior (Chronic) Intermittent since adolescence Epigastric abdominal pain (Acute 06/04/16) Medical History (Updated 03/05/23 @ 10:56 by LEONID Green) Acute pharyngitis Anxiety (05/01/12) Attention deficit hyperactivity disorder, combined type Dyspareunia in female R > L sided pelvic pain. History of mood disorder Late teens--[place] RX, Lamotrigine RX Sore throat Surgical History Dilation and curettage With early AB ~16yo Family History Father Anxiety untreated Narcissism per pt/mom's description Depression Mother Anxiety Maternal Grandmother Asthma Breast cancer post menopause Heart disease Hypertension Maternal Grandfather Heart disease Cancer Social History Smoking/Tobacco Use Status: Current every day Tobacco Type: cigarettes Second Hand Exposure: No Smoking risk assessment performed?: Yes Alcohol Intake: current Alcohol Intake frequency: holidays/special occasions only Drug use: Occasionally Substance use type: marijuana Details: no IV drug use Adopted: No Caregiver/Support person: No Foster care: No Household members: family Housing: house Do you need help understanding health information?: Often Sexually active: Yes Do you think of yourself as: Decline to Provide Current gender identity: female What type of physical activity do you participate in: none Seatbelt use: always Helmet use: No Drive intox or ride w/intox locomotive driver: No Do you feel safe at home: Yes Do you feel safe in your relationship?: Yes Additional Social history: lives with grandparents History History 1 Para Hx # Term Pregnancies Multiple births Hx # Pregnancies Ectopic pregnancies AB induced 1 Hx Number of Living Children AB spontaneous Course Vital Signs Vital signs: Vital Signs Temperature 37.5 C 03/05/23 10:29 Pulse 86 03/05/23 10:29 Respiratory Rate 18 03/05/23 10:29 Blood Pressure 124/73 03/05/23 10:29 Pulse Oximetry 99 03/05/23 10:29 Temperature 37.5 C 03/05/23 10:29 Temperature Source Temporal Artery Scan 03/05/23 10:29 Pulse 86 03/05/23 10:29 Respiratory Rate 18 03/05/23 10:29 Respiratory Effort Normal, Non-Labored 03/05/23 10:35 Blood Pressure 124/73 03/05/23 10:29 Blood Pressure Position Sitting 03/05/23 10:29 Pulse Oximetry 99 03/05/23 10:29 Oxygen Delivery Method Room Air 03/05/23 10:29 Oxygen Flow Rate 0 03/05/23 10:29
== END 2023-03-05 10:59 | disposition home or self-care (01) ==
PROVIDERS: Emergency Provider Physician Assistant; PCP Nurse Practitioner Adult Health
DX: F31.9 Bipolar disorder, unspecified (principal); Z76.0 Encounter for issue of repeat prescription
CPT/HCPCS: 99283; 99284

== ENCOUNTER 2023-03-10 10:25 | Outpatient (CLI) | payer SELFPAY ==
[2023-03-10 08:54] LABS: Abs Immature Grans 0.01 10^3/uL (0.0-0.06); Absolute Basophil Count 0.05 10^3/uL (0.0-0.2); Absolute Lymphocyte Count 1.69 10^3/uL (1.2-3.4); Absolute Monocyte Count 0.36 10^3/uL (0.1-0.8); Absolute Neutrophil Count 2.42 10^3/uL (1.2-6.7); Basophils % 1.1; Eosinophils % 2.2; HCT 43.4 % (36.0-46.0); HGB 14.7 g/dL (11.2-15.7); Immature Grans % 0.2; Lymphocytes % 36.5; MCH 30.4 pg (27.0-33.0); MCHC 33.9 % (32.0-36.0); MCV 90 fL (80-95); MPV 11.3 fL (8.0-11.0); Monocytes % 7.8; Neutrophils % 52.2; Platelet Count 152 10^3/uL (130-400); RBC 4.83 10^6/uL (3.93-5.22); RDW-SD 39.8 fL; WBC 4.63 10^3/uL (4.4-10.8)
[2023-03-10 09:14] LABS: VALPROIC ACID 69.2 ug/mL
[2023-03-10 09:39] LABS: ALT 20 U/L (14-59); AST 13 U/L (15-37); Albumin 4.4 g/dL (3.4-5.0); Alkaline Phosphatase 39 U/L (46-116); Anion Gap 7.7 mmol/L (3-11); BUN 11 mg/dL (7-18); Bilirubin, Total 0.4 mg/dL (0.2-1.0); CO2 28.3 mmol/L (21.0-32.0); CREATININE 0.8 mg/dL (0.55-1.02); Calcium 9.2 mg/dL (8.5-10.1); Chloride 104 mmol/L (98-107); Estimated GFR 104.15 (mL/min/1.73m2); Glucose 94 mg/dL (74-106); Potassium 4.4 mmol/L (3.5-5.1); Sodium 140 mmol/L (136-145); TSH 0.54 uIU/mL (0.36-3.74); Vitamin B12 730 pg/mL (193-986)
[2023-03-10 10:14] LABS: Vitamin D 25 Total 43.3 ng/mL (30-100)
== END 2023-03-10 10:26 | disposition home or self-care (01) ==
LOC: LBO 10:26
PROVIDERS: PCP Nurse Practitioner Adult Health; Visit Provider Nurse Practitioner Psychiatric/Mental Health
DX: F31.81 Bipolar II disorder (principal); R63.0 Anorexia
CPT/HCPCS: 36415; 80053; 82306; 80164; 82607; 84443; 85025

== ENCOUNTER 2023-07-10 15:32 | Emergency (ER) | payer SELFPAY ==
[2023-07-10 15:37] VITALS: BP 153/94; PULSE 81; RESP 18; TEMP 36.8; O2SAT 100
--- NOTE | 2023-07-10 19:24 | ED.GENADUL_ITS ---
Discharge Plan Disposition Patient Disposition: Home Condition: Stable Discharge Details Clinical Impression: Laceration of thumb, Glued skin wound Primary Care Provider: Mayra Worrell ED Provider: Dorothy Estevez Home Meds and New Rx's Prescriptions: Continued cbd PO DAILY PRN omeprazole 20 mg capsule,delayed release(DR/EC) 20 mg PO DAILY Qty: 30 2RF Rx Instructions: Take on empty stomach in morning for heartburn. fluoxetine [Prozac] 20 mg capsule 20 mg PO DAILY Rx Instructions: per note dated 06/10/21 [facility] aripiprazole [Abilify] 2 mg tablet 2 mg PO DAILY Rx Instructions: per note dated 06/10/21 [facility] clonazepam 0.5 mg tablet 0.5 mg PO PRN PRN Patient Comments: Take 1 tablet by mouth three times a day as needed for anxiety divalproex [Depakote] 500 mg tablet,delayed release (DR/EC) 500 mg PO BID Patient Comments: Take 1 tablet by mouth once a day for three days then take twice daily until seen or called for increase divalproex [Depakote] 500 mg tablet,delayed release (DR/EC) 500 mg PO BID Qty: 10 0RF Discharge Instructions Instructions: Laceration (ED) Additional Instructions: Keep wound dry, do not submerge in water, keep covered while at work, return with redness, pain, or any signs of infection Referrals: Mayra Worrell, DEPUTY BAILIFF [Primary Care Provider] - Discharge Data Discharge Date/Time-TO BE ENTERED AT DEPARTURE: 07/10/23 16:11 Medical Decision Making Patient presents for thumb laceration, superficial 1 inch laceration to thumb, no active bleeding Wound was cleansed and skin affix was applied, tetanus up-to-date Neurovascularly intact Return precautions reviewed and patient expressed understanding HPI General Date/Time Provider Initiated Documentation: 07/10/23 15:37 . HPI Narrative: This 28-year-old female presents with laceration to left thumb while cutting bread just prior to arrival. Tetanus up-to-date. Denies any additional concerns Related Data Home Medications Medication Instructions Recorded Confirmed cbd PO DAILY PRN 11/17/20 03/30/21 omeprazole 20 mg capsule,delayed 20 mg PO DAILY #30 caps 12/17/20 03/05/23 release aripiprazole 2 mg tablet (Abilify) 2 mg PO DAILY 07/24/21 fluoxetine 20 mg capsule (Prozac) 20 mg PO DAILY 07/24/21 clonazepam 0.5 mg tablet 0.5 mg PO PRN PRN 03/05/23 03/05/23 divalproex 500 mg tablet,delayed 500 mg PO BID 03/05/23 03/05/23 release (Depakote) divalproex 500 mg tablet,delayed 500 mg PO BID #10 tabs 03/05/23 release (Depakote) Previous Rx's Medication Instructions Recorded omeprazole 20 mg capsule,delayed 20 mg PO DAILY #30 caps 12/17/20 release divalproex 500 mg tablet,delayed 500 mg PO BID #10 tabs 03/05/23 release (Depakote) Allergies Allergy/AdvReac Type Severity Reaction Status Date / Time amoxicillin Allergy Mild hives Unverified 03/05/23 10:33 General Stated Complaint: Laceration RAHUL: 4 PFSH All Active Problems (Updated 07/10/23 @ 16:03 by LEONID Green) Laceration of thumb (Acute) Glued skin wound (Acute) ADHD (attention deficit hyperactivity disorder), predominantly hyperactive impulsive type (Acute) Post-traumatic stress disorder, unspecified (Acute) Anxiety and depression (Chronic) At risk for domestic abuse (Acute) Underweight (Acute) Heartburn (Acute) Marijuana use (Chronic) Daily Nicotine use disorder (Chronic) Binge-purge behavior (Chronic) Intermittent since adolescence Epigastric abdominal pain (Acute 06/04/16) Medical History (Updated 07/10/23 @ 16:03 by LEONID Green) Acute pharyngitis Anxiety (05/01/12) Attention deficit hyperactivity disorder, combined type Dyspareunia in female R > L sided pelvic pain. History of mood disorder Late teens--[place] RX, Lamotrigine RX Sore throat Surgical History Dilation and curettage With early AB ~16yo Family History Father Anxiety untreated Narcissism per pt/mom's description Depression Mother Anxiety Maternal Grandmother Asthma Breast cancer post menopause Heart disease Hypertension Maternal Grandfather Heart disease Cancer Social History Smoking/Tobacco Use Status: Current every day Tobacco Type: cigarettes Second Hand Exposure: No Smoking risk assessment performed?: Yes Alcohol Intake: current Alcohol Intake frequency: holidays/special occasions only Drug use: Occasionally Substance use type: marijuana Details: no IV drug use Adopted: No Caregiver/Support person: No Foster care: No Household members: family Housing: house Do you need help understanding health information?: Often Sexually active: Yes Do you think of yourself as: Decline to Provide Current gender identity: female What type of physical activity do you participate in: none Seatbelt use: always Helmet use: No Drive intox or ride w/intox bus van driver: No Do you feel safe at home: Yes Do you feel safe in your relationship?: Yes Additional Social history: lives with grandparents History History 1 Para Hx # Term Pregnancies Multiple births Hx # Pregnancies Ectopic pregnancies AB induced 1 Hx Number of Living Children AB spontaneous Course Vital Signs Vital signs: Vital Signs Temperature 36.8 C 07/10/23 15:37 Pulse 81 07/10/23 15:37 Respiratory Rate 18 07/10/23 15:37 Blood Pressure 153/94 H 07/10/23 15:37 Pulse Oximetry 100 07/10/23 15:37 Temperature 36.8 C 07/10/23 15:37 Pulse 81 07/10/23 15:37 Respiratory Rate 18 07/10/23 15:37 Respiratory Effort Normal, Non-Labored 07/10/23 15:42 Blood Pressure 153/94 H 07/10/23 15:37 Blood Pressure Position Sitting 07/10/23 15:37 Pulse Oximetry 100 07/10/23 15:37 Oxygen Delivery Method Room Air 07/10/23 15:37 Oxygen Flow Rate 0 07/10/23 15:37 Pain Level 6 07/10/23 15:37
== END 2023-07-10 16:11 | disposition home or self-care (01) ==
PROVIDERS: Emergency Provider Physician Assistant; PCP Nurse Practitioner Adult Health
DX: S61.012A Laceration without foreign body of left thumb without damage to nail, initial encounter (principal); T14.8XXA Other injury of unspecified body region, initial encounter; Y93.G3 Activity, cooking and baking
CPT/HCPCS: 99281; 99282

== ENCOUNTER 2024-05-19 12:19 | Outpatient (REF) | payer SELFPAY | END 2024-05-19 12:20 | disposition home or self-care (01) | LOC: NCHCN 12:19 | PROVIDERS: PCP Nurse Practitioner Adult Health; Visit Provider Nurse Practitioner Adult Health | DX: J02.9 Acute pharyngitis, unspecified (principal) | CPT/HCPCS: 87070 ==

== ENCOUNTER 2024-08-13 11:53 | Emergency (ER) | payer BC, SELFPAY ==
[2024-08-13 11:54] VITALS: BP 138/89; PULSE 100; RESP 18; TEMP 36.6; O2SAT 99
--- NOTE | 2024-08-13 12:25 | W.ED.GENAD ---
Discharge Plan Disposition Patient Disposition: Home Condition: Stable Discharge Details Clinical Impression: Threatened miscarriage Primary Care Provider: Mayra Worrell ED Provider: Dorothy Estevez Home Meds and New Rx's Prescriptions: No Action No Known Home Meds Discharge Instructions Instructions: Bleeding in Early ED Additional Instructions: Right now, there is a baby in your uterus with a heartbeat I recommend pelvic rest and follow-up for repeat blood quantitative level at the discretion of [facility], I am placing referral for follow-up Please continue to take care of yourself and keep yourself hydrated Make sure you start on a vitamin and return earlier should you have increased bleeding, worsening pain, or should new concerns arise Stand Alone Forms: Work Release Referrals: Mayra Worrell, GEOSPATIAL IMAGERY INTELLIGENCE ANALYST [Primary Care Provider] - 1 day Discharge Data Discharge Date/Time-TO BE ENTERED AT DEPARTURE: 08/13/24 14:07 HPI General Date/Time Provider Initiated Documentation: 08/13/24 11:58. HPI Narrative: 29-year-old female presents with report of vaginal bleeding/spotting intermittently over the course of the past week. Patient is approximately 6 weeks . States she [facility] Scheduled for appointment today and ultrasound. Presents secondary to a large bloody clot just prior to arrival. Related Data Home Medications ?Medication ?Instructions ?Recorded ?Confirmed Unknown [No Known Home Meds] 05/29/24 08/13/24 Allergies Allergy/AdvReac Type Severity Reaction Status Date / Time amoxicillin Allergy Mild hives Unverified 08/14/24 13:24 General Stated Complaint: [facility] RAHUL: 3 Exam Narrative Exam Narrative: Alert and oriented 29-year-old female in acute distress, no abdominal tenderness, no pallor, very agitated and emotional Course Vital Signs Vital signs: Vital Signs Temperature 36.6 C 08/13/24 11:54 Pulse 100 H 08/13/24 11:54 Respiratory Rate 18 08/13/24 11:54 Blood Pressure 138/89 08/13/24 11:54 Pulse Oximetry 99 08/13/24 11:54 Temperature 36.6 C 08/13/24 11:54 Temperature Source Oral 08/13/24 11:54 Pulse 100 H 08/13/24 11:54 Respiratory Rate 18 08/13/24 11:54 Respiratory Effort Normal, Non-Labored 08/13/24 11:59 Blood Pressure 138/89 08/13/24 11:54 Pulse Oximetry 99 08/13/24 11:54 Oxygen Delivery Method Room Air 08/13/24 11:54 Oxygen Flow Rate 0 08/13/24 11:54 Pain Level 4 08/13/24 11:54 Medical Decision Making 29-year-old female presenting crying and very upset with report of vaginal bleeding positive IUP with heart activity noted per radiology interpretation and my review. Bleeding has slowed. Quantitative level is below normal range for 6 weeks at 2600, patient will need repeat quant level and is aware that she is at risk for miscarriage. She will engage in pelvic rest and follow-up with gynecology. Vitals remained stable. Rh+, no indication for RhoGAM at this time. Return precautions reviewed and patient expressed understanding. Patient has calmed down and all questions at time of discharge home. Quality:SDOH Health Related Social Needs: No Data to Display PFSH All Active Problems Threatened miscarriage (Acute) Bleeding in early (Acute) Positive urine test (Acute) ADHD (attention deficit hyperactivity disorder), predominantly hyperactive impulsive type (Acute) Post-traumatic stress disorder, unspecified (Acute) Anxiety and depression (Chronic) At risk for domestic abuse (Acute) Underweight (Acute) Heartburn (Acute) Marijuana use (Chronic) Daily Nicotine use disorder (Chronic) Binge-purge behavior (Chronic) Intermittent since adolescence Epigastric abdominal pain (Acute 06/04/16) Medical History Acute pharyngitis Sore throat History of mood disorder Late teens--[employer] [place] RX, Lamotrigine RX Anxiety (05/01/12) Dyspareunia in female R > L sided pelvic pain. Attention deficit hyperactivity disorder, combined type Surgical History Dilation and curettage With early AB ~16yo Family History Father Anxiety untreated Narcissism per pt/mom's description Depression Mother Anxiety Maternal Grandmother Asthma Breast cancer post menopause Heart disease Hypertension Maternal Grandfather Heart disease Cancer Social History Smoking/Tobacco Use Status: Current every day Tobacco Type: cigarettes Second Hand Exposure: No Smoking risk assessment performed?: Yes Alcohol Intake: current Alcohol Intake frequency: holidays/special occasions only Drug use: Occasionally Substance use type: marijuana Adopted: No Caregiver/Support person: No Foster care: No Household members: family Housing: house Do you need help understanding health information?: Often Sexually active: Yes Do you think of yourself as: Decline to Provide Current gender identity: female What type of physical activity do you participate in: none Seatbelt use: always Helmet use: No Drive intox or ride w/intox driver engineer: No Do you feel safe at home: Yes Do you feel safe in your relationship?: Yes Additional Social history: lives with grandparents History History 1 Para Hx # Term Pregnancies Multiple births Hx # Pregnancies Ectopic pregnancies AB induced 1 Hx Number of Living Children AB spontaneous
--- NOTE | 2024-08-13 12:30 | DI.US_ITS ---
Exam(s) US OB 1ST TRIMESTER EXAM: US OB 1ST TRIMESTER CLINICAL HISTORY: vaginal bleeding, preg. COMPARISON: US PELVIS TRANSVAG from 01/20/2016 TECHNIQUE: Transabdominal Transvaginal first trimester obstetrical ultrasound performed. FINDINGS: There is a single living intrauterine gestation present. The estimated gestational age is 6 weeks 1 day based on crown-rump length of 4 mm. The yolk sac was visualized. heart motion was identif ied. The heart rate was not measured at this time. There is a very small subchorionic hemorrh age adjacent to the gestation. There is a 2.1 x 1.4 cm corpus luteal cyst on the left ovary. Pelvic Measurments Uterus: 8.1 x 4.2 x 4.7 cm x Rt Ovary: 2.4 x 2.3 x 1.6 cm Lt Ovary: 2.8 x 1.4 x 2.5 cm IMPRESSION: Single live intrauterine gestation as above. Estimated gestational age based on crown-rump length is 6 weeks 1 day. The heart rate was not measured at this time, however heart motion was id entified sonographically. DATA REPOSITORY:
[2024-08-13 12:31] LABS: Abs Immature Grans 0.05 10^3/uL (0.0-0.06); Absolute Basophil Count 0.04 10^3/uL (0.0-0.2); Absolute Eosinophil Count 0.07 10^3/uL (0.0-0.7); Absolute Lymphocyte Count 2.82 10^3/uL (1.2-3.4); Absolute Monocyte Count 0.72 10^3/uL (0.1-0.8); Absolute Neutrophil Count 6.02 10^3/uL (1.2-6.7); Basophils % 0.4 %; Eosinophils % 0.7 %; HCT 40.2 % (36.0-46.0); HGB 14.3 g/dL (11.2-15.7); Immature Grans % 0.5 %; MCHC 35.6 % (32.0-36.0); MCV 87 fL (80-95); MPV 11.1 fL (8.0-11.0); Monocytes % 7.4 %; Platelet Count 283 10^3/uL (130-400); RBC 4.62 10^6/uL (3.93-5.22); RDW 11.9 % (11.7-14.6); RDW-SD 38.5 fL; WBC 9.72 10^3/uL (4.4-10.8)
[2024-08-13 12:37] LABS: Bilirubin Negative (Negative); Blood Trace-intact (Negative); Clarity Clear (Clear); Glucose Negative (Negative); Ketones >=160 mg/dL (Negative); Leukocyte Esterase Negative (Negative); Nitrite Negative (Negative); Urobilinogen 0.2 mg/dL (Up to 0.2)
[2024-08-13 12:55] LABS: Bacteria Few HPF (Negative); C & S Indicated? No/Sq. Contamination; Casts Negative LPF (Negative); Crystals Negative HPF (Negative); Epithelial Cells Many HPF (Negative); Mucus Moderate (Negative); RBC 0-2 HPF (0-2); WBC 0-2 HPF (0-5)
[2024-08-13 12:58] LABS: ALT 28 U/L (14-59); AST 17 U/L (15-37); Albumin 4.5 g/dL (3.4-5.0); Alkaline Phosphatase 47 U/L (46-116); Anion Gap 11.3 mmol/L (3-11); BUN 8 mg/dL (7-18); Bilirubin, Total 0.53 mg/dL (0.2-1.0); CO2 25.7 mmol/L (21.0-32.0); CREATININE 0.7 mg/dL (0.55-1.02); Calcium 9.4 mg/dL (8.5-10.1); Chloride 104 mmol/L (98-107); Estimated GFR 120.74 (mL/min/1.73m2); Glucose 94 mg/dL (74-106); Potassium 3.4 mmol/L (3.5-5.1); Sodium 141 mmol/L (136-145); Total Protein 8.1 g/dL (6.4-8.2)
[2024-08-13 13:14] LABS: HCG Quant, Pregnancy 2932 mIU/mL (1-3)
[2024-08-13 14:07] VITALS: BP 118/78; PULSE 71; RESP 18; TEMP 37.4; O2SAT 100
== END 2024-08-13 14:07 | disposition home or self-care (01) ==
PROVIDERS: Emergency Provider Physician Assistant; PCP Nurse Practitioner Adult Health
DX: O20.0 Threatened abortion (principal)
CPT/HCPCS: 80053; 86850; 86900; 86901; 99284; 76801; 81003; 81015; 84702; 85025

== ENCOUNTER 2024-09-10 16:30 | Outpatient (CLI) | payer BC, SELFPAY ==
[2024-09-10 17:44] LABS: HCG Quant, Pregnancy < 1 mIU/mL (1-3)
[2024-09-13 10:37] LABS: Activated Partial Thrombo Time 31 sec (25 - 37); DRVVT Screen Ratio 0.72 ratio (<1.20); INR 0.9 (0.9-1.1); Prothrombin Time (PT) 10.3 sec (9.4 - 12.5)
== END 2024-09-10 16:31 | disposition home or self-care (01) ==
LOC: LBO 16:31
PROVIDERS: PCP Nurse Practitioner Adult Health; Visit Provider Obstetrics & Gynecology Gynecology
DX: O03.9 Complete or unspecified spontaneous abortion without complication (principal)
CPT/HCPCS: 36415; 85390; 85610; 85613; 85730; 83520; 84702

== ENCOUNTER 2024-11-23 14:49 | Outpatient (CLI) | payer BC, SELFPAY ==
[2024-11-23 15:34] LABS: HCG Quant, Pregnancy 3145 mIU/mL (1-3)
== END 2024-11-23 14:50 | disposition home or self-care (01) ==
LOC: LBO 14:49
PROVIDERS: PCP Nurse Practitioner Adult Health; Visit Provider Obstetrics & Gynecology Gynecology
DX: Z32.01 Encounter for pregnancy test, result positive (principal); Z87.42 Personal history of other diseases of the female genital tract; N91.2 Amenorrhea, unspecified; O21.9 Vomiting of pregnancy, unspecified
CPT/HCPCS: 36415; 84702

== ENCOUNTER 2025-01-09 02:55 | Outpatient (CLI) | payer BC, SELFPAY ==
[2025-01-09 16:14] LABS: Panorama Kit Sent via Fed Ex
[2025-01-09 16:29] LABS: Abs Immature Grans 0.06 10^3/uL (0.0-0.06); Absolute Basophil Count 0.05 10^3/uL (0.0-0.2); Absolute Eosinophil Count 0.09 10^3/uL (0.0-0.7); Absolute Lymphocyte Count 2.08 10^3/uL (1.2-3.4); Absolute Monocyte Count 0.51 10^3/uL (0.1-0.8); Absolute Neutrophil Count 6.85 10^3/uL (1.2-6.7); Basophils % 0.5 %; Eosinophils % 0.9 %; HCT 39.4 % (36.0-46.0); HGB 13.6 g/dL (11.2-15.7); Immature Grans % 0.6 %; Lymphocytes % 21.6 %; MCH 30.4 pg (27.0-33.0); MCHC 34.5 % (32.0-36.0); MCV 88 fL (80-95); MPV 11.3 fL (8.0-11.0); Monocytes % 5.3 %; Neutrophils % 71.1 %; Platelet Count 232 10^3/uL (130-400); RBC 4.47 10^6/uL (3.93-5.22); RDW 12.3 % (11.7-14.6); RDW-SD 39.9 fL; WBC 9.64 10^3/uL (4.4-10.8)
[2025-01-09 17:31] LABS: TSH (W/Ref FT4) 1.51 uIU/mL (0.36-3.74)
[2025-01-10 09:11] LABS: Hepatitis B Surface Ag Negative (Negative)
[2025-01-10 09:50] LABS: HIV-1/2 Ag & Ab Screen Negative (Negative)
[2025-01-10 10:07] LABS: Hepatitis C Ab w Rflx HCV PCR Negative (Negative)
[2025-01-10 10:11] LABS: Rubella IgG Ab (UVM) Positive (See Note)
[2025-01-10 10:14] LABS: Varicella IgG Antibody Positive (See Note)
[2025-01-11 17:49] LABS: Syphilis IgG w/Reflex Nonreactive (Nonreactive)
== END 2025-01-09 02:56 | disposition home or self-care (01) ==
LOC: LBO 02:55
PROVIDERS: PCP Nurse Practitioner Adult Health; Visit Provider Advanced Practice Midwife
DX: Z34.91 Encounter for supervision of normal pregnancy, unspecified, first trimester (principal); Z12.4 Encounter for screening for malignant neoplasm of cervix
CPT/HCPCS: 36415; 86787; 86803; 86850; 86900; 86901; 87340; 87389; 84443; 85025; 86762; 86780

== ENCOUNTER 2025-01-09 15:31 | Outpatient (REF) | payer BC, SELFPAY ==
--- NOTE | 2025-01-09 15:00 | PAPFT_PTH ---
PATIENT: Renetta Aviles V LOC: N U#:[id number] AGE/SX: 29/F ROOM: RE01/09/[address]: Karo Katz CNM : 1995 BED: DIS: 01/09/2025 SPEC #: [id number] RECD: 01/09/25 18:02 STATUS: MARKO REBryan #: [id number] SABRA: 01/09/25 15:[address]: Karo Katz DEPT: [facility] Cytology RECD BY: Dorothy Crandall ENTERED: 01/09/25 18:02 SP TYPE: PAPFT CHRISTIANE DR: Mayra Worrell, TYRON Tissues: 1 - CX/ENDOCX FOR PAP SMEARS Procedures: PAP THIN PREP/UVM Screening Comments: [id number] (CHLAMYDIA/GC)
[2025-01-09 17:24] LABS: *AMPHETAMINES SCREEN URINE Negative (Negative); *BARBITURATES SCREEN URINE Negative (Negative); *BENZODIAZEPINES SCREEN URINE Negative (Negative); Cannabinoids THC Positive (Negative); Cocaine Screen,Urine Negative (Negative); METHADONE URINE SCREEN Negative (Negative); OPIATES URINE SCREEN Negative (Negative); Tricyclic Antidepressants Negative (Negative)
[2025-01-10 11:56] LABS: Chlamydia Result Negative (Negative); GC Result Negative (Negative)
[2025-01-10 12:32] LABS: Fentanyl Scr w/Rfx Confirm Negative ng/mL (<1)
[2025-01-15 11:41] LABS: Buprenorphine Negative ng/mL (Cutoff: 5.0); Norbuprenorphine Negative ng/mL (Cutoff: 2.5)
== END 2025-01-09 15:32 | disposition home or self-care (01) ==
LOC: LBN 15:31
PROVIDERS: PCP Nurse Practitioner Adult Health; Visit Provider Advanced Practice Midwife
DX: Z34.91 Encounter for supervision of normal pregnancy, unspecified, first trimester (principal); Z12.4 Encounter for screening for malignant neoplasm of cervix
CPT/HCPCS: 80307; 80348; 87491; 87591; 88142; 87086

== ENCOUNTER 2025-01-18 12:53 | Outpatient (CLI) | payer BC, SELFPAY ==
--- NOTE | 2025-01-18 13:00 | RT.EKG_ITS ---
APPROVED REPORT Exam: Resting ECG Reason for Exam: irregular heart beat Patient Location: O HR:87 bpm ECG Measurements Heart Rate 87 AXIS OK 117 P 72 QRSd 70 QRS 69 QT 374 T 43 QTc 450 Conclusion Sinus arrhythmia...V-rate 69- 96, variation>10% Normal Electrocardiogram
== END 2025-01-18 12:54 | disposition home or self-care (01) ==
PROVIDERS: PCP Nurse Practitioner Adult Health; Visit Provider Advanced Practice Midwife
DX: Z34.91 Encounter for supervision of normal pregnancy, unspecified, first trimester (principal); I49.8 Other specified cardiac arrhythmias
CPT/HCPCS: 93005; 93010

== ENCOUNTER 2025-04-30 03:00 | Outpatient (CLI) | payer MEDICAID, SELFPAY ==
[2025-04-30 10:24] LABS: HCT 34.5 % (36.0-46.0); HGB 12.0 g/dL (11.2-15.7); MCH 31.1 pg (27.0-33.0); MCHC 34.8 % (32.0-36.0); MCV 89 fL (80-95); MPV 10.6 fL (8.0-11.0); Platelet Count 171 10^3/uL (130-400); RBC 3.86 10^6/uL (3.93-5.22); RDW 12.1 % (11.7-14.6); RDW-SD 39.4 fL; WBC 8.26 10^3/uL (4.4-10.8)
[2025-04-30 10:42] LABS: Glucose,1 Hr (Glucola) 104 mg/dL (80-140)
== END 2025-04-30 03:01 | disposition home or self-care (01) ==
LOC: LBO 03:01
PROVIDERS: PCP Nurse Practitioner Adult Health; Visit Provider Advanced Practice Midwife
DX: Z34.92 Encounter for supervision of normal pregnancy, unspecified, second trimester (principal)
CPT/HCPCS: 36415; 82950; 85027

== ENCOUNTER 2025-04-30 10:04 | Outpatient (REF) | payer MEDICAID, SELFPAY ==
[2025-04-30 11:23] LABS: Cannabinoids THC Negative (Negative); METHADONE URINE SCREEN Negative (Negative)
[2025-05-01 11:47] LABS: Fentanyl Scr w/Rfx Confirm Negative ng/mL (<1)
== END 2025-04-30 10:05 | disposition home or self-care (01) ==
LOC: LBN 10:04
PROVIDERS: PCP Nurse Practitioner Adult Health; Visit Provider Advanced Practice Midwife
DX: Z34.92 Encounter for supervision of normal pregnancy, unspecified, second trimester (principal)
CPT/HCPCS: 80307; 80348

== ENCOUNTER 2025-06-26 16:01 | Outpatient (REF) | payer MEDICAID, SELFPAY | END 2025-06-26 16:02 | disposition home or self-care (01) | LOC: LBN 16:01 | PROVIDERS: PCP Nurse Practitioner Adult Health; Visit Provider Advanced Practice Midwife | DX: Z34.93 Encounter for supervision of normal pregnancy, unspecified, third trimester (principal) | CPT/HCPCS: 87081 ==

== ENCOUNTER 2025-07-10 16:07 | Outpatient (CLI) | payer MEDICAID, SELFPAY ==
[2025-07-10] VITALS (7 sets, daily range): BP systolic 128; BP diastolic 73; PULSE 65–84; TEMP 37; O2SAT 98–100
--- NOTE | 2025-07-10 18:19 | PDOC.NST_ITS ---
Date of service: 07/10/25 Time of Service: 18:20 NST Evaluation Reason for NST Reasons for Nonstress Test: OTHER, SEE COMMENT Reason for NST Other: Decreased heart rate heard in office Gestational Age Gestational Age in Weeks and Days: 37 Weeks and 6Days Test and Monitor Explained Test/Monitor Explained: Test Explained, Monitor Explained and Patient Verbalized Understanding Vital Signs Blood Pressure: 128/73 Pulse: 70 Temperature: 98.6 F NST Information Date on Monitor: 07/10/25 Time on Monitor: 16:23 Date off Monitor: 07/10/25 Time off Monitor: 16:45 Total Time on Monitor: 22 NST Interventions: None NST Evaluation Patient States Movement: Present FHR Baseline: 110 Variability: Moderate 6-25 bpm Accelerations: 15x15 Decelerations: None NST Results: Reactive Note Ultrasound Done: N/A. NST Note Note: Renetta was seen at the office for visit. FHTs 114-120 with doppler. [facility] for NST. Reactive nST. Renetta will return in 5 days for visit NST Reviewed and Verified by: Irina Talbert
== END 2025-07-10 16:52 ==
LOC: BCD 16:09 → OBS 16:11
PROVIDERS: PCP Nurse Practitioner Adult Health; Visit Provider Advanced Practice Midwife
DX: O36.8331 Maternal care for abnormalities of the fetal heart rate or rhythm, third trimester, fetus 1 (principal); Z3A.37 37 weeks gestation of pregnancy
CPT/HCPCS: 59025

== ENCOUNTER 2025-07-25 15:30 | Inpatient (IN) | payer MEDICAID, SELFPAY ==
[2025-07-25] VITALS (123 sets, daily range): BP systolic 108–147; BP diastolic 52–89; PULSE 57–164; RESP 16–17; TEMP 36.9–37.2; O2SAT 94–100; BMI 27.2
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
[2025-07-25 16:03] LABS: Abs Immature Grans 0.11 10^3/uL (0.0-0.06); HCT 36.8 % (36.0-46.0); HGB 12.6 g/dL (11.2-15.7); Immature Grans % 1.0 %; MCH 28.9 pg (27.0-33.0); MCHC 34.2 % (32.0-36.0); MCV 84 fL (80-95); MPV 11.7 fL (8.0-11.0); Platelet Count 168 10^3/uL (130-400); RBC 4.36 10^6/uL (3.93-5.22); RDW 12.4 % (11.7-14.6); RDW-SD 37.7 fL; WBC 10.51 10^3/uL (4.4-10.8)
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
--- NOTE | 2025-07-25 17:31 | W.ANESNEU ---
Epidural/Spinal Catheter Date Performed: 07/25/25 Procedure Start: 17:03 Procedure Stop: 17:33 Requesting Provider: Karo Katz Procedure Location: Obstetrics Reason Performed: Labor Epidural Standard Monitors Applied: Blood Pressure, SpO2 and See EMR for corresponding vital signs Patient Position: Sitting Sedation Given (Indicate Dose Given): No Sedation given Patient Mental Status: Awake Sterility: Hand Hygiene, Surgical Cap, Surgical Mask, Sterile Gloves, Sterile Drape/Sheet and Chlorhexidine Procedure Location: L4-L5 Interspace Epidural Needle: Tuohy 17 Guage Needle Length: 5 Inch Needle Approach: Midline Epidural Procedure: Skin Prepped, Sterile Drape Placed, 1% Lidocaine to skin and subcutaneous tissue with 25G needle, Tuohy Needle placed, GERRI to Saline Used, Epidural Catheter Placed, Negative Heme, Negative CSF Flow and Tuohy Needle Removed Catheter Placed?: Catheter Placed Test Dose (Indicate Dose Given): 5ml 1.5% Lidocaine with 1:200K Epinephrine Given and Negative Test Dose Loss of Resistance Depth (cm): 7 Catheter depth at skin (cm): 12 Dressing: Sorbaview Dressing Placed, Mastisol Used and Dressing reinforced with Tape Epidural Provider Bolus (Indicate Dose Given): Total Ropivacaine 0.1% with Fentanyl 2mcg/ml Given from pump. (ml) Dose:: 10 ml Additives (Indicate Dose Given ): None Infusion Medication: Medication Infusion Began Medication Infusion: Ropivacaine 0.1% with Fentanyl 2mcg/ml Maintenance Infusion Rate (ml/hour): 10 PCEA Bolus Dose (ml): 5 Block Level: N/A Paresthesia: None Ultrasound: Not Used Number of Attempts (See previous attempts in note section): 1 Procedure Tolerated: No Complications and Patient tolerated well Procedure Outcome: Successful Performed By: Daniella Del Cid Supervised By: Tae Cook
[2025-07-25] MEDS: FentaNYL/ROPIvacaine 2 mcg/ml and 0.1% 200 ML CADD Cassette EP (17:40)
[2025-07-25] MEDS: Lactated Ringers 500 ML IV (17:41)
--- NOTE | 2025-07-25 18:17 | W.PM.OBNL1 ---
Date of service: 07/25/25 Time of Service: 18:17 Informed Consent Informed Consent: Regional Anesthesia, Risk,Benefits,Alternatives Discussed and Other (AROM) Pelvic Exam Dilation: 4 Effacement (%): 100 station: 0 Cervix Position: mid Consistency: soft Contractions Monitor Mode: External Contraction Frequency(min): q3-4 Intensity: Moderate Fetus A Monitor: External (US) Heart Rate Baseline: 140 Variability: Moderate (6-25 BPM) Categories: Category I Accelerations: Present Decelerations: None Amniotic Membrane Status: Ruptured Rupture Method: Artifical Amniotic Fluid: Clear Date of Membrane Rupture: 07/25/25 Time of Membrane Rupture: 18:11 Assessment and Plan Assessment and plan (1) Normal labor: Status: Acute Assessment and plan: A: Pt resting after epidural placement, consents to AROM Category 1 tracing, afebrile and normotensive FOB at bedside providing support P: Clear fluid returned with bloody mucous, Maternal positioning to encourage rotation and descent Anticipate Objective Abnormal lab results 07/25/25 Range/Units 15:47 MPV 11.7 H (8.0-11.0) fL Absolute Neutrophils 8.46 H (1.2-6.7) 10^3/uL Temp Pulse Resp BP Pulse Ox 98.4 F 61 16 119/60 100 07/25/25 17:57 07/25/25 18:16 07/25/25 17:39 07/25/25 18:15 07/25/25 18:14 Laboratory Results WBC 10.51 10^3/uL (4.4-10.8) 07/25/25 15:47 RBC 4.36 10^6/uL (3.93-5.22) 07/25/25 15:47 Hgb 12.6 g/dL (11.2-15.7) 07/25/25 15:47 Hct 36.8 % (36.0-46.0) 07/25/25 15:47 MCV 84 fL (80-95) 07/25/25 15:47 MCH 28.9 pg (27.0-33.0) 07/25/25 15:47 MCHC 34.2 % (32.0-36.0) 07/25/25 15:47 RDW 12.4 % (11.7-14.6) 07/25/25 15:47 Plt Count 168 10^3/uL (130-400) 07/25/25 15:47 MPV 11.7 fL (8.0-11.0) H 07/25/25 15:47 Immature Gran % 1.0 % 07/25/25 15:47 Neutrophils % 80.6 % 07/25/25 15:47 Lymphocytes % 13.2 % 07/25/25 15:47 Monocytes % 4.9 % 07/25/25 15:47 Eosinophils % 0.1 % 07/25/25 15:47 Basophils % 0.2 % 07/25/25 15:47 Nucleated RBC % 0.0 % (0.0-0.3) 07/25/25 15:47 Absolute Neutrophils 8.46 10^3/uL (1.2-6.7) H 07/25/25 15:47 Absolute Lymphocytes 1.39 10^3/uL (1.2-3.4) 07/25/25 15:47 Absolute Monocytes 0.52 10^3/uL (0.1-0.8) 07/25/25 15:47 Absolute Eosinophils 0.01 10^3/uL (0.0-0.7) 07/25/25 15:47 Absolute Basophils 0.02 10^3/uL (0.0-0.2) 07/25/25 15:47 ABO/Rh A Positive 07/25/25 15:47 Antibody Screen NEGATIVE 07/25/25 15:47 Vital Signs Reviewed: Yes Subjective Interval history since last seen: Epidural placed at pt request, pt reports she feels more comfortable and very tired, may be able to sleep a bit.
[2025-07-25] MEDS: Calcium Carbonate *TUMS* 500 MG CHEW 1000 MG PO (20:02)
--- NOTE | 2025-07-25 21:15 | W.PM.OBNL1 ---
Date of service: 07/25/25 Time of Service: 22:07 Informed Consent Informed Consent: Risk,Benefits,Alternatives Discussed and Other (FSE) Pelvic Exam Dilation: 7 (anterior cvx somewhat edematous) Effacement (%): 100 station: +2 Contractions Monitor Mode: External Contraction Frequency(min): q3 Intensity: Moderate/Strong Fetus A Monitor: Internal (FSE) Heart Rate Baseline: 130 Variability: Moderate (6-25 BPM) Categories: Category I Accelerations: Present Decelerations: Early Amniotic Membrane Status: Ruptured Assessment and Plan Assessment and plan (1) Normal labor: Status: Acute Assessment and plan: A: Progressed to 7/+2, bloody show noted Period of cat 2 tracing d/t minimal variability now resolved to cat 1 in LLP Effective epidural, FSE placed to improve tracing readability with position changes P: Continue current plan of care Anticipate Objective Vital Signs Reviewed: Yes Subjective Interval history since last seen: epidural is effective, pt comfortable, consent given for FSE placement due to decel while semifowlers and pt positioned left laterally and IV bolus of 500 ml given.
--- NOTE | 2025-07-25 22:40 | W.PM.OBNL1 ---
Date of service: 07/25/25 Time of Service: 22:42 Pelvic Exam Dilation: 8.5 Effacement (%): 100 station: +2 Contractions Monitor Mode: External Contraction Frequency(min): q3 Intensity: Moderate/Strong Fetus A Monitor: Internal (FSE) Heart Rate Baseline: 140 Variability: Moderate (6-25 BPM) Categories: Category II Accelerations: Present Decelerations: Early and Variable Recurrence: Intermittent Amniotic Membrane Status: Ruptured Assessment and Plan Assessment and plan (1) Normal labor: Status: Acute Assessment and plan: A: 8-9 cm, overall cat 1 tracing with early decels Urine output by cath 600 ml P: continue monitoring for progress and tolerance of labor Dr. Velasco inhouse Anticipate Objective Vital Signs Reviewed: Yes Subjective Interval history since last seen: Pt reports her back was hurting and sore while lying LLP, RN straight cath'ed for 600 ml urine, pt repositioned to RLP, SVE for 8-9 dilation at +2 station, pt remains comfortable.
--- NOTE | 2025-07-25 23:29 | W.PM.OBNL1 ---
Date of service: 07/25/25 Time of Service: 23:10 Informed Consent Informed Consent: Risk,Benefits,Alternatives Discussed and Other (FSE) Pelvic Exam Dilation: 9.5 station: +2 Contractions Monitor Mode: External Contraction Frequency(min): q3 Intensity: Moderate/Strong Fetus A Monitor: Internal (FSE) Heart Rate Baseline: 140 Variability: Moderate (6-25 BPM) Decelerations: Prolonged (2-3 minute decel, resolved with reposition to LLP) Assessment Note: Pt RLP when spontaneous prolonged decel occurred, pt changed to LLP with resolution to baseline and moderate variability continues. Assessment and Plan Assessment and plan (1) Normal labor: Status: Acute Assessment and plan: A: transition, approaching 2nd stage Overall cat 1 tracing with period of cat 2 d/t prolonged decel Reviewed tracing with Dr. Velasco P: With tracing cat 1 in LLP, await passive descent Discussed with pt indications for vacuum assist and unlikely though possible c/s Pt verbalized understanding, strongly motivated for vaginal delivery Anticipate Objective Vital Signs Reviewed: Yes Objective Narrative Objective Narrative: Prolonged decel resolved with maternal position change 8-9 cm, encouraged pt to push with a few contractions and cvx reduced to a rim on maternal right side FHT's category 1 with pt in LLP, will await full dilation and passive descent, then resume pushing efforts Dr. Velasco reviewed tracing and in agreement with plan of care
[2025-07-26] VITALS (20 sets, daily range): BP systolic 107–137; BP diastolic 62–89; PULSE 60–99; RESP 16–18; TEMP 36.6–36.8; O2SAT 98–99
[2025-07-26] MEDS: Oxytocin/Normal Saline 30 UNIT/500 ML BAG 95 UNITS IV (00:45)
[2025-07-26] MEDS: TRANEXAMIC ACID/SOD. CHL. 1,000 MG/100 ML BAG 600 MG (00:55)
[2025-07-26] MEDS: Methylergonovine 0.2 MG/ML VIAL (01:14)
--- NOTE | 2025-07-26 01:24 | OBVDS_ITS ---
Date of service: 07/26/25 Time of Service: 01:25 OB Labor/ Delivery Information Providers Nurse Sheet Metal Supervisor: Karo Katz Nurse: Cherie Delgadillo Nurse: Grace Dunham Labor/Delivery Information Number of Babies in Womb: 1 Steroids Given: None Reason Steroids Not Administered: N/A Group Beta Strep: Negative Antibiotics Administered: No Rubella Status: Immune Blood Type: A+ Varicella Immunity: Immune Shoulder Dystocia: No Stages of Labor Onset of Labor Date: 07/25/25 Onset of Labor Time: 01:00 Complete Dilatation Date: 07/26/25 Complete Dilatation Time: 00:27 Labor - Stage 1 Duration: 23 hours and 27 minutes ROM Baby A: 07/25/25 ROM Baby A: 18:11 ROM Total Time- Baby A: [id number] Infant Delivery Date-Baby A: 07/26/25 Delivery Time-Baby A: 00:37 Labor Stage 2 Duration: 10 minutes Placenta Delivery Date-Baby A: 07/26/25 Placenta Delivery Time-Baby A: 00:43 Labor-Stage 3 Duration: 6 minutes Total Length of Labor-Baby A: 23 hours and 37 minutes Placenta Status: Delivered Baby A Gender: Female Gestational Status: Term (39-41.6 wks) Gestational Age in Weeks/Days: 40 Weeks and 1 Days Score-1 Minute Interval(Baby A) Heart Rate-1 minute: 100 BPM or Greater Respiratory Effort- 1 minute: Spontaneous/Strong Cry Muscle Tone-1 minute: Active Movement Reflex Response-1 minute: Prompt Response Color-1 minute: Bluish Hands or Feet Total Score-1 minute: 9 Score-5 Minute Interval(Baby A) Heart Rate- 5 minute: 100 BPM or Greater Respiratory Effort-5 minute: Spontaneous/Strong Cry Muscle Tone-5 minute: Active Movement Reflex Response-5 minute: Prompt Response Color-5 minute: Bluish Hands or Feet Total Score- 5 minute: 9 Note: 30 yo G1 now P1001 underwent a 40 week vaginal delivery over an intact perineum under epidural anesthesia to a baby girl (Justyna). Patient presented to L&D earlier in the day in active labor. She was AROM'd to clear fluid at 1811. She p rogressed on her own without augmentation to complete and began pushing. Over the course of her pushing, the talent acquisition relationship manager alerted me to the monitor surrounding concerns for intermittent variable decelerations. I came and introduced myself to the patient and we discussed the potential need for a vacuum and/or if there is deterioration in the strip while pushing. All questions were answered to the patient's satisfaction. By this time, the FHT's had improved and she continued to labor down. The talent acquisition relationship manager went back and continued pushing with the patient; however, concerningly persistent variable decelerations developed and I entered the room. The patient appeared to be pushing well. The bladder had been emptied just an hour prior. SVE found her complete / +2. We had an extensive discussion regarding the risks of vacuum including, but not limited to, bleeding on the baby's scalp and brain, severe lacerations on the scalp, and severe lacerations to the vagina. We also discussed that if the vacuum falls off three times, then we should proceed with section. The OR team was called to start making their way in just in case. She verbalized understanding and wished to proceed. With her next pushing effort, the scalp was assessed and the vacuum was placed centered over the sagittal suture and 2 cm anterior to the posterior fontanelle. The vacuum was pumped up to the green zone and her pushing efforts were facilitated. Over the course of 3 pushes, we were able to facilitate getting the head down, but she was having difficulties getting the head to crown. As I asked for the lidocaine to create an episiotomy, she was able to get the baby to crown with one final push. The vacuum was then immediately removed and the mother was instructed not to push. An assessment of the neck and shoulders did not find a nuchal cord. She was able to deliver the shoulders without issue on her next push. The rest of the body delivered without issue, and the baby was immediately vigorous. The baby was placed onto the maternal abdomen. The cord was double clamped and cut by the father of the baby under the guidance of the talent acquisition relationship manager. A segment of cord was collected and set aside for cord gases. Cord blood was then collected. I requested initiation of the Pitocin, and the placenta delivered without issue fully intact within 15 minutes of delivery. An evaluation of her vagina identified a right sided labial, left vaginal walll, and first degree perineal laceration, all of which were repaired with 2-0 vicryl in a traditional fashion. Despite adequate repairs, her bleeding continued. TXA was called for and the bladder was evacuated for 950 cc's. She also received Methergine; this ultimately achieved hemostasis. Patient tolerated the procedure wel.
[2025-07-26] MEDS: Dibucaine 1% 28 GM TUBE TP (02:33)
[2025-07-26] MEDS: Hamamelis Leaf/Glycerin 100 EACH BOX PR (02:33)
[2025-07-26] MEDS: Ibuprofen 600 MG TAB PO ×4 (02:33→21:04)
[2025-07-26] MEDS: Acetaminophen 325 MG TAB 650 MG PO ×4 (02:33→21:04)
[2025-07-26] MEDS: Docusate Sodium 100 MG CAP PO ×2 (02:34→15:10)
[2025-07-26 04:24] LABS: Cannabinoids THC Positive (Negative); METHADONE URINE SCREEN Negative (Negative)
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
--- NOTE | 2025-07-26 09:56 | ANES.POST_ITS ---
Postoperative Evaluation Date, Time and Location Date Performed: 07/26/25 Time Performed: 09:45 Patient Location: Obstetrics Vital Signs Most Recent Imported Vital Signs: Most Recent Vital Signs Temp Pulse Resp BP Pulse Ox 36.8 C 60 16 128/88 100 07/26/25 08:55 07/26/25 08:55 07/26/25 08:55 07/26/25 08:55 07/25/25 23:54 Pain Score Most Recent Pain Score: Most Recent Pain Score Pain Level 6 07/25/25 23:00 Assessment Mental Status: Awake (Alert & Oriented to Patient Baseline) Airway and Respiratory Function: Patent airway with normal (patient baseline) respiratory exam Cardiovascular Function: Hemodynamically Stable Hydration Status: Adequately Hydrated Nausea & Vomiting: No Nausea or Vomiting Pain: Pt. Denies Any Pain Peripheral Nerve Block: Patient did not receive a nerve block Postoperative Comments:: all questions and concerns answered at bedside. pt and support person state un derstanding.
[2025-07-27] MEDS: Acetaminophen 325 MG TAB 650 MG PO ×4 (00:59→20:22)
[2025-07-27] MEDS: Docusate Sodium 100 MG CAP PO ×2 (00:59→20:22)
[2025-07-27] MEDS: Dibucaine 1% 28 GM TUBE TP (07:40)
[2025-07-27 07:56] VITALS: BP 127/71; PULSE 69; RESP 16; TEMP 36.7
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
[2025-07-27] MEDS: Ibuprofen 600 MG TAB PO ×2 (13:15→20:22)
[2025-07-27 20:50] VITALS: BP 131/72; PULSE 79; RESP 16; TEMP 36.7
[2025-07-28] MEDS: Acetaminophen 325 MG TAB 650 MG PO ×2 (04:42→09:37)
[2025-07-28] MEDS: Ibuprofen 600 MG TAB PO (04:42)
[2025-07-28 08:35] VITALS: BP 122/79; PULSE 65; RESP 16; TEMP 36.5
[2025-07-28] MEDS: Docusate Sodium 100 MG CAP PO (08:35)
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
[2025-07-28 19:59] LABS: Fentanyl Scr w/Rfx Confirm Positive ng/mL (<1)
[2025-07-30 09:47] LABS: Norfentanyl Confirmation Negative ng/mL (<10)
== END 2025-07-28 12:00 | disposition home or self-care (01) | DRG 806 ==
LOC: BCD 15:53 → OBS 15:53
PROVIDERS: Admitting Provider Advanced Practice Midwife; PCP Nurse Practitioner Adult Health; Visit Provider Advanced Practice Midwife
DX: O99.344 Other mental disorders complicating childbirth (principal); O72.1 Other immediate postpartum hemorrhage; Z37.0 Single live birth; F41.9 Anxiety disorder, unspecified; F32.9 Major depressive disorder, single episode, unspecified; F43.10 Post-traumatic stress disorder, unspecified; Z63.0 Problems in relationship with spouse or partner; Z3A.40 40 weeks gestation of pregnancy; O76 Abnormality in fetal heart rate and rhythm complicating labor and delivery; O70.0 First degree perineal laceration during delivery; F90.9 Attention-deficit hyperactivity disorder, unspecified type
CPT/HCPCS: 80307; 80354; 86850; 86900; 86901; 85025; J2210

== ENCOUNTER 2025-08-31 13:07 | Outpatient (REF) | payer MEDICAID, SELFPAY | END 2025-08-31 13:08 | disposition home or self-care (01) | LOC: LBN 13:07 | PROVIDERS: PCP Nurse Practitioner Adult Health; Visit Provider Physician Assistant Medical | DX: J02.9 Acute pharyngitis, unspecified (principal) | CPT/HCPCS: 87070 ==